=== PATIENT | male | born 1945 | race Caucasian/White ===

== ENCOUNTER → 2018-05-09 08:40 | Outpatient (CLI) | payer MEDICARE, OTHER, SELFPAY ==
--- NOTE | 2018-05-09 08:51 | MR_ITS ---
MR shoulder RT wo con HISTORY: Right shoulder pain with limited range of motion ITS.REASON: RIGHT SHOULDER PAIN ORDERING PHYSICIAN: Jonathan Fagan PATIENT AGE: 72 years Comparison: None TECHNIQUE: Standard multiplanar multiecho sequences are performed without contrast. FINDINGS: There are moderate to severe hypertrophic changes of the acromioclavicular joint. There is a low-lying acromion with subacromial stenosis of 2 mm. There is a complete tear of the supraspinatus tendon with retraction of the musculotendinous fibers. There is marked thinning of the infraspinatus tendon. There does appear to be some fibers intact. The teres minor tendon is intact. The subscapularis tendon distended but does appear intact. No labral tears apparent. There is a moderate-sized shoulder joint effusion with fluid also in the subcoracoid region. There is mild superior displacement of the humeral head with severe subacromial stenosis. The bicipital tendon of the long head of the biceps is not identified superiorly. No fracture or dislocation is evident. IMPRESSION: 1. Complete tear of the supraspinatus tendon with retraction of the musculotendinous fibers with severe subacromial stenosis and mild superior displacement of the humeral head and severe acromioclavicular arthropathy. 2. Thinning of the infraspinatus and subscapularis tendons 3. Moderate-sized shoulder joint effusion. 4. Nonvisualization of the long head of the biceps tendon superiorly suggesting tendon tear
== END ==
PROVIDERS: PCP Internal Medicine; Visit Provider Internal Medicine
DX: M25.511 Pain in right shoulder (principal)
CPT/HCPCS: 73221

== ENCOUNTER 2018-12-25 08:00 | Outpatient (RCR) | payer OTHER, MEDICARE, SELFPAY | END 2018-12-25 08:05 | disposition home or self-care (01) | LOC: PT 08:00 | PROVIDERS: Visit Provider Physician Assistant Surgical | DX: M25.511 Pain in right shoulder (principal) | CPT/HCPCS: 97010; 97012; 97014; 97016; 97035; 97110; 97140; 97163; 97164; G0283 ==

== ENCOUNTER 2019-08-24 09:00 | Outpatient (RCR) | payer OTHER, MEDICARE, SELFPAY | END 2019-08-24 09:05 | disposition home or self-care (01) | LOC: PT 09:00 | DX: H81.93 Unspecified disorder of vestibular function, bilateral | CPT/HCPCS: 97110; 97112; 97140; 97163 ==

== ENCOUNTER 2020-10-02 17:43 | Emergency (ER) | payer OTHER, SELFPAY ==
[2020-10-02 17:50] VITALS: BP 134/67; PULSE 66; RESP 19; TEMP 36.8; O2SAT 98; BMI 32.5
--- NOTE | 2020-10-02 18:37 | HMH.EDUTC ---
[facility] – [place] Disposition Clinical Impression: Laceration Disposition: Home, Self-Care Condition on Discharge: Good Instructions: Laceration Repair, DI for Laceration Repair -- Finger Additional Instructions: return 10 days for suture removal keep area clean and dry apply Vaseline to wound after sutures removed soak with vinegar for 15 mins, 1tsp vinegar to cup warm water apply to clean wash cloth apply to wound for 15 mins watch for s/s infection Prescriptions: cephALEXin [cephALEXin 500mg capsule*] 500 mg PO BID 7 Days #14 cap Prescription Printed Referrals: Jonathan Fagan [Primary Care Provider] - Time of Disposition: 19:22 Medical Decision Making - Anup Inquiry Pt receiving controlled substance: No Vital Signs: 10/02/20 17:50 Temperature 98.3 F Temperature Source Oral Pulse Rate [Right Brachial] 66 Respiratory Rate 19 Blood Pressure [Right Arm] 134/67 Blood Pressure Mean [Right Arm] 89 Blood Pressure Source [Right Arm] Automatic Cuff Blood Pressure Position [Right Arm] Sitting 02 Sat by Pulse Oximetry 98 Oxygen Delivery Method Room Air [facility] – [place], [place] HPI - General Chief complaint: Urgent Treatment Center Stated complaint: cut to right index finger Time Seen by Provider: 10/02/20 18:37 Mode of Arrival: Ambulatory Source of Information: Patient Limitations: No Limitations Description of Symptoms (Recalled from Triage Doc. 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, last tetnus shot 3 yrs ago - Related Data Previous Rx's Medication Instructions Recorded cephALEXin [cephALEXin 500mg 500 mg PO BID 7 Days #14 cap 10/02/20 capsule*] Allergies Allergy/AdvReac Type Severity Reaction Status Date / Time Penicillins Allergy Verified 10/02/20 18:19 - Worker's Comp Is this a Worker's Comp case?: No [facility] History - Hepatitis A Screen Drug use history?: No High risk sexual behaviors?: No History of sexually transmitted infection?: No Currently employed?: No Childcare worker?: No Do you have indoor plumbing?: Yes Do you have electricity?: Yes Attestation statement:: This patient has been screened for Hepatitis A risk factors. I have reviewed the patient's past medical history: Yes - Social History Alcohol Intake: never Occupational Status: other ROS Obtained: Yes Systems reviewed as appropriate & no additional complaints - Constitutional Constitutional: Reports system reviewed and no additional complaints, except as docu, Denies chills, Denies fever(s) - Eyes Eyes: Reports system reviewed and no additional complaints, except as docu, Denies blurry vision - ENT Ears, Nose, Mouth, and Throat: Reports system reviewed and no additional complaints, except as docu, Denies sore throat - Cardiovascular Cardiovascular: Reports system reviewed and no additional complaints, except as docu, Denies chest pain at rest - Respiratory Respiratory: Reports system reviewed and no additional complaints, except as docu, Denies dyspnea - Gastrointestinal Gastrointestingal: Reports: system reviewed and no additional complaints, except as docu. Denies: nausea, vomiting - Genitourinary Male Genitourinary: Reports system reviewed and no additional complaints, except as docu - Musculoskeletal Musculoskeletal: Reports system reviewed and no additional complaints, except as docu, Denies joint pain - Integumentary/Breasts Skin/Breast: Reports system reviewed and no additional complaints, except as docu, Reports as per HPI, Reports other - Neurologic Neurologic: Reports system reviewed and no additional complain
[2020-10-02 19:17] VITALS: BP 134/67; PULSE 66; RESP 19; TEMP 36.8; O2SAT 98
== END 2020-10-02 19:30 | disposition home or self-care (01) ==
PROVIDERS: Emergency Provider Nurse Practitioner Family; PCP Internal Medicine
DX: S61.210A Laceration without foreign body of right index finger without damage to nail, initial encounter (principal); W26.0XXA Contact with knife, initial encounter; Y92.019 Unspecified place in single-family (private) house as the place of occurrence of the external cause
CPT/HCPCS: 12002; 99202; G0463

== ENCOUNTER 2020-10-12 13:46 | Emergency (ER) | payer OTHER, MEDICARE, SELFPAY ==
[2020-10-12 13:50] VITALS: BP 141/76; PULSE 80; RESP 18; TEMP 36.8; O2SAT 98; BMI 33.2
[2020-10-12 13:55] VITALS: BP 141/76; PULSE 80; RESP 18; TEMP 36.8; O2SAT 98
== END 2020-10-12 13:57 | disposition home or self-care (01) ==
PROVIDERS: Emergency Provider Nurse Practitioner Family; PCP Internal Medicine
DX: S61.210D Laceration without foreign body of right index finger without damage to nail, subsequent encounter (principal)